=== PATIENT | male | born 1985 | race Caucasian/White ===

== ENCOUNTER → 2022-11-08 | Outpatient (CLI) | payer BC ==
--- NOTE | 2022-11-08 11:29 | MR ---
EXAMINATION TYPE: MR lumbar spine wo con DATE OF EXAM: 11/08/2022 8:50 AM COMPARISON: 02/26/2014 18. CLINICAL INDICATION:Male, 37 years old with history of M47.816 SPONDYLOSIS W/O MYELOPATHY OR RADICULO PATH; Chronic lower back pain. TECHNIQUE: Multi planar, multi sequence imaging was performed utilizing: T1-weighted, T2-weighted, a nd turbo inversion recovery imaging of the lumbar spine. IV Contrast: None. FINDINGS: Alignment: The lumbar vertebral bodies have preserved heights and alignment. Cord: The conus medullaris and the distal spinal cord appear unremarkable with regards to their signa l intensity and morphology. Bones/Discs: Multilevel degenerative disc disease is noted and most pronounced at the L4-L5 and L5-S1 .. Disc desiccation at L4-L5 and L5-S1. Scattered Modic endplate changes are mild at L5-S1. T12-L1: No evidence of significant spinal canal stenosis or neural foraminal stenosis. L1-L2: No evidence of significant spinal canal stenosis or neural foraminal stenosis. L2-L3: No evidence of significant spinal canal stenosis or neural foraminal stenosis. L3-L4: No evidence of significant spinal canal stenosis or neural foraminal stenosis. L4-L5: Central disc extrusion with annular fissure. This contacts extending cephalad 8 mm. This mater ial also extends into the left central/subarticular region. The protrusion abuts nerves on the left series 601 image 8. No significant spinal canal stenosis. The neural foramen are patent. L5-S1: The disc is rounded posterior morphology without significant spinal canal stenosis. Facet join t arthropathy with mild neural foraminal stenosis. Other findings: None. 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
== END | disposition home or self-care (01) ==
LOC: RADMRIMAIN 06:33
PROVIDERS: ATTEND Physical Medicine & Rehabilitation
DX: M47.816 Spondylosis without myelopathy or radiculopathy, lumbar region (principal); M99.73 Connective tissue and disc stenosis of intervertebral foramina of lumbar region
CPT/HCPCS: 72148

== ENCOUNTER → 2023-04-22 | Outpatient (CLI) | payer BC ==
[2023-04-22 16:27] LABS: HCT 46.1 % (39.6-50.0); HGB 15.7 d/dL (13.0-17.0); MCH 30.7 pg (27.0-32.0); MCHC 34.1 d/dL (32.0-37.0); Mean Platelet Volume 11.2 FL (9.5-12.2); NRBC Per 100 WBC 0 X 10*3/uL (0.00-0.01); Platelet Count 190 X 10*3/uL (140-440); RBC 5.12 X 10*6/uL (4.40-5.60); RDW 12.1 % (11.5-14.5); WBC 6.17 X 10*3/uL (4.50-10.00)
[2023-04-22 16:37] LABS: BUN/Creat Ratio 15.11 Ratio (12.00-20.00); Blood Urea Nitrogen 13.6 mg/dL (9.0-27.0); Calcium 9.6 mg/dL (8.7-10.3); Carbon Dioxide 27.9 mmol/L (21.6-31.8); Chloride 103 mmol/L (96-109); Glucose 94 mg/dL (70-110); Potassium 4.4 mmol/L (3.5-5.5); Sodium 139 mmol/L (135-145)
== END | disposition home or self-care (01) ==
LOC: LABWHC1 08:19
DX: Z01.812 Encounter for preprocedural laboratory examination (principal)
CPT/HCPCS: 36415; 80048; 85027